=== PATIENT | male | born 1955 | race Caucasian/White ===

== ENCOUNTER 2024-01-05 10:46 | Day surgery (SDC) | payer BC ==
[~2024-01-05 10:46] MED LIST: LIDOCAINE 1% (10MG/ML) FOR IV START INTRADERMA PRN
[2024-01-05 11:16] VITALS: TEMP 97.7
[2024-01-05] MEDS: IV FLUID CONTINUATION 1,000 ML IV ONE (11:16)
[2024-01-05] MEDS: LACTATED RINGERS 1,000 ML IV SCH (11:17)
[2024-01-05] MEDS ORDERED: PROPOFOL 10 MG/ML 20 ML VIAL IV ONE (12:25)
--- NOTE | 2024-01-05 12:29 | P.GSHP ---
History of Present Illness H&P Date: 01/05/24 Chief Complaint: screening colonoscopy this a 68-year-old male presents today for screening colonoscopy. Patient denies a significant GI complaints. Past Medical History Past Medical History: Hypertension, Renal Disease Additional Past Medical History / Comment(s): stage 3 kidney disease History of Any Multi-Drug Resistant Organisms: None Reported Past Surgical History: No Surgical Hx Reported Past Anesthesia/Blood Transfusion Reactions: No Reported Reaction Additional Past Anesthesia/Blood Transfusion Reaction / Comment(s): no hx. anesthesia or blood transfusions Smoking Status: Never smoker Medications and Allergies Home Medications Medication Instructions Recorded Confirmed Type amLODIPine BESYLATE 5 mg PO DAILY 01/02/24 01/05/24 History lisinopriL 2.5 mg PO DAILY 01/02/24 01/05/24 History Allergies Allergy/AdvReac Type Severity Reaction Status Date / Time No Known Allergies Allergy Verified 01/02/24 09:51 Surgical - Exam Vital Signs Temp Pulse Resp BP Pulse Ox 97.7 F 96 16 137/84 97 01/05/24 11:08 01/05/24 11:08 01/05/24 11:08 01/05/24 11:08 01/05/24 11:08 - General well developed, well nourished, no distress - Eyes PERRL - ENT normal pinna - Neck no masses - Respiratory normal expansion - Cardiovascular Rhythm: regular - Abdomen Abdomen: soft, non tender Assessment and Plan Assessment: we'll perform screening colonoscopy
--- NOTE | 2024-01-05 12:40 | P.OP ---
Date of Procedure: 01/05/24 Preoperative Diagnosis: screening colonoscopy Postoperative Diagnosis: hemorrhoids Procedure(s) Performed: colonoscopy Anesthesia: MAC Surgeon: Praveen Solo Pathology: none sent Condition: stable Disposition: PACU Description of Procedure: the patient's placed on the endoscopy table in the lateral position. He received IV sedation. Digital rectal exam was performed. This revealed external hemorrhoids. Flexible colonoscope was then placed patient anus and passed throughout the entire colon. The ileocecal valve was visualized. The cecum, ascending and transverse colon appeared normal. The descending and sigmoid colon appeared normal. Scope was brought back the rectum and this appeared normal. Scope withdrawn for patient. Some minimal internal hemorrhoids and larger external hemorrhoids were noted.
[2024-01-05 13:34] VITALS: BP 129/85; PULSE 88; RESP 16
== END 2024-01-05 13:55 | disposition home or self-care (01) ==
LOC: ORWHC2ENDO 10:46
PROVIDERS: ATTEND Surgery
DX: Z12.11 Encounter for screening for malignant neoplasm of colon (principal); K64.8 Other hemorrhoids; K64.4 Residual hemorrhoidal skin tags; I12.9 Hypertensive chronic kidney disease with stage 1 through stage 4 chronic kidney disease, or unspecified chronic kidney disease; N18.30 Chronic kidney disease, stage 3 unspecified; Z79.899 Other long term (current) drug therapy
CPT/HCPCS: J2704; G0121